=== PATIENT | female | born 1970 | race Two or more races ===

== ENCOUNTER 2024-12-04 07:49 | Outpatient (RCR) | payer MEDICAID, SELFPAY ==
--- NOTE | 2024-11-21 16:29 | CTCFLWUP_ITS ---
Patient: RADHA BRADLEY : 1970 Page 2 of 2 FOLLOW UP NOTE DATE OF SERVICE: 11/21/2024 NAME: RADHA BRADLEY ACCOUNT: [id number] : 1970 AGE: 54 INTERVAL HISTORY: Patient is here to follow-up on her CML. Patient is doing well and have no new complaints. She has rheumatoid issues and have stiffness in her joints but are otherwise doing well she is taking her mar row for that. She is taking her N neb and do not have any problems with it ONCOLOGY HISTORY: DIAGNOSIS: Chronic myeloid leukemia diagnosed in 2011 DATE OF DIAGNOSIS: 2011 STAGE/TNM: Chronic myeloid leukemia TREATMENT HISTORY: Care?Plan Start?Date Cycle Day Intent HISTORY OF PRESENT ILLNESS: Radha Bradley is a 54-year-old ENG speaking Other female referred to [facility] for hi story of CML. 2011: Ms. Bradley states that she has been having leukocytosis initially noted in 2011 2016: She was found to have leukocytosis by the surgeon who was trying to do some kind of surgery on her. Surgery was canceled. Patient was worked up further and found to have CML. She had bone marro w biopsy done. 04/2016?05/23/2016: Ms. Bradley was started on nilotinib 300 mg p.o. twice daily. Unfortunately she de veloped hepatic toxicity. 06/11/2016: Allotment was changed to 400 mg p.o. daily. She was being followed by Dr. Mike Bustamante. 07/09/2022: Dr. Soto's note states that BCR/ABL negative. 01/17/2024: BCR/ABL transcript level negative. 06/14/2024: BCR/ABL transcript level negative (less than 0.0032%). OTHER MEDICAL HISTORY/CONDITIONS: HYPERTENSION LEUKEMIA TUBAL?LIGATION?(1999) FAMILY HISTORY: Father:?FATHER?PROSTATE?CANCER Mother:?DENIES Sibling:?DENIES Children:?DENIES Cancer?History:?LEUKEMIA?DX?IN?2016 SOCIAL HISTORY: Occupational?History:?RETIRED [employer] Education?Level:?Completed High School Marital?Status:? 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 atorvastatin - 10 mg 1 tab Every day before sleep 2. chlorthalidone - 25 mg 1 tab Daily 3. lisinopril - 40 mg 1 tab Daily 4. propranolol - 40 mg 1 tab Twice a Day Medications Last Reconciled by Michell Parr MA on 11/21/2024 ALLERGIES: No Known Allergies REVIEW OF SYSTEMS: A complete 14-point review of systems was performed and is negative except as noted in interval histo ry. PHYSICAL EXAMINATION: VITAL SIGNS: Temperature?98.5, B/P?108/71, Oxygen?Saturation?96% Weight?140?lbs PAIN: 0 - No pain ECOG Performance Status: 0 - Asymptomatic and fully active GENERAL APPEARANCE: Appears well, in no apparent distress, appropriately interactive. HEENT: Normocephalic, no temporal wasting, normal conjunctiva, no scleral icterus, normal hearing, li ps without lesions, neck normal range of motion. CARDIOVASCULAR: Not assessed. PULMONARY: Normal respiratory effort, no respiratory distress or use of accessory muscles, speaking i n full sentences, no tachypnea. EXTREMITIES: No pedal edema or cyanosis. SKIN: Normal skin appearance. NEUROLOGIC: Alert and oriented x4. PSHYCHIATRIC: Appropriate affect, mood normal, behavior normal, intact thought and speech. LABORATORY DATA: I have personally reviewed and interpreted each of the patient?s relevant lab tests, abnormal finding s are below: Date ASSESSMENT/PLAN: Chronic myelogenous leukemia initially diagnosed in 2016. Chronic phase. Ms. Bradley continues to re main asymptomatic. Ms. Bradley is clinically doing well without any complaints. Tolerating nilotinib without any significant side effect BCR/ABL transcript level less than 0.0032% (06/14/2024). I do not have any recent BCR-ABL level as labs are still pending Currently Ms. Bradley is on nilotinib 400 mg p.o. daily. Return with a telephone appointment in 2 weeks to check BCR-ABL continue lenvatinib chronic right ank le pain. Hypertension Continue nilotinib 400 mg p.o. daily. I will see her in 2 weeks as telephone appointment and then I will see her back in clinic in 4 months with labs drawn prior to the visit. CBC CMP BCR-ABL to be done in 4 months RETURN TO CLINIC: 2 weeks telephone appointment BILLING AND COMPLIANCE: I reviewed external records from providers outside my specialty as summarized above. I spent a total of 50 minutes on this patient?s care on the day of their visit excluding time spent related to any bi lled procedures. This time includes time spent with the patient as well as time spent documenting in the medical record, reviewing patients records and tests, obtaining history, placing orders, communi cating with other healthcare professionals, counseling the patient, family or caregiver, and/or care coordination for the diagnoses above. Electronically Signed by: Markell Roche MD T: 4:27 PM CC: PCP: Markell Roche Referring: Markell Roche This document was completed utilizing speech recognition software. Grammatical errors, random word in sertions, pronoun errors, and incomplete sentences are an occasional consequence of this system due t o software limitations, ambient noise, and hardware issues. Any formal questions or concerns about th e content, text or information contained within the body of this dictation should be directly address ed to the provider for clarification.
--- NOTE | 2024-12-04 16:42 | CTCFLWUP_ITS ---
Patient: RADHA RBADLEY : 1970 Page 4 of 4 FOLLOW UP NOTE telephone appointment DATE OF SERVICE: 12/04/2024 NAME: RADHA BRADLEY ACCOUNT: [id number] : 1970 AGE: 54 INTERVAL HISTORY: I initiated phone call at the appointment time. Patient's identity confirmed by date of and fu ll name. Patient agreed to follow-up with a telephone appointment patient is here to discuss her BCR -ABL results. patient is doing well and have no new complaints. She has rheumatoid issues and have stiffness in her joints but are otherwise doing well she is taking her marrow for that. She is takin g her N neb and do not have any problems with it ONCOLOGY HISTORY: DIAGNOSIS: Chronic myeloid leukemia diagnosed in 2011 DATE OF DIAGNOSIS: 2011 STAGE/TNM: Chronic myeloid leukemia TREATMENT HISTORY: Care?Plan Start?Date Cycle Day Intent HISTORY OF PRESENT ILLNESS: Radha Bradley is a 54-year-old ENG speaking Other female referred to [facility] for hi story of CML. 2011: Ms. Bradley states that she has been having leukocytosis initially noted in 2011 2016: She was found to have leukocytosis by the surgeon who was trying to do some kind of surgery on her. Surgery was canceled. Patient was worked up further and found to have CML. She had bone marro w biopsy done. 04/2016?05/23/2016: Ms. Bradley was started on nilotinib 300 mg p.o. twice daily. Unfortunately she de veloped hepatic toxicity. 06/11/2016: Allotment was changed to 400 mg p.o. daily. She was being followed by Dr. Mike Bustamante. 07/09/2022: Dr. Soto's note states that BCR/ABL negative. 01/17/2024: BCR/ABL transcript level negative. 06/14/2024: BCR/ABL transcript level negative (less than 0.0032%). OTHER MEDICAL HISTORY/CONDITIONS: HYPERTENSION LEUKEMIA TUBAL?LIGATION?(1999) FAMILY HISTORY: Father:?FATHER?PROSTATE?CANCER Mother:?DENIES Sibling:?DENIES Children:?DENIES Cancer?History:?LEUKEMIA?DX?IN?2016 SOCIAL HISTORY: Occupational?History:?RETIRED [employer] Education?Level:?Completed High School Marital?Status:? 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 atorvastatin - 10 mg 1 tab Every day before sleep 2. chlorthalidone - 25 mg 1 tab Daily 3. lisinopril - 40 mg 1 tab Daily 4. propranolol - 40 mg 1 tab Twice a Day 5. Tasigna - 200 mg 2 Capsule Daily Medications Last Reconciled by Michell Parr MA on 11/21/2024 (Reconcile on Approval: ?) ALLERGIES: No Known Allergies LABORATORY DATA: I have personally reviewed and interpreted each of the patient?s relevant lab tests, abnormal finding s are below: I reviewed Ms. Bradley's BCR-ABL results from [facility] BCR-ABL less than 0.0032 Date ASSESSMENT/PLAN: Chronic myelogenous leukemia initially diagnosed in 2015. Chronic phase. Ms. Bradley continues to re main asymptomatic. Ms. Bradley is clinically doing well without any complaints. Tolerating nilotinib without any significant side effect BCR/ABL transcript level less than 0.0032% (since January 2024 till current Patient very happy with the results and appreciated call currently Ms. Bradley is on nilotinib 400 mg p.o. daily. Continue nilotinib 400 mg p.o. daily. CBC CMP BCR-ABL to be done in 4 months ORDERS: CBC CMP BCR-ABL RETURN TO CLINIC: 4 months BILLING AND COMPLIANCE: I reviewed external records from providers outside my specialty as summarized above. I spent a total of 50 minutes on this patient?s care on the day of their visit excluding time spent related to any bi lled procedures. This time includes time spent with the patient as well as time spent documenting in the medical record, reviewing patients records and tests, obtaining history, placing orders, communi cating with other healthcare professionals, counseling the patient, family or caregiver, and/or care coordination for the diagnoses above. Electronically Signed by: {Object.Sanct_ID*PnP.NameFL@M}, {Object.Sanct_ID*PnP.Suffix@U} D: {Object.Sanct_Date} T: {Object.Sanct_Time} CC: PCP: Markell Roche Referring: Markell Roche This document was completed utilizing speech recognition software. Grammatical errors, random word in sertions, pronoun errors, and incomplete sentences are an occasional consequence of this system due t o software limitations, ambient noise, and hardware issues. Any formal questions or concerns about th e content, text or information contained within the body of this dictation should be directly address ed to the provider for clarification.
== END 2024-12-08 23:59 | disposition home or self-care (01) ==
LOC: SCTC 07:49
PROVIDERS: PCP Physician Assistant; Referring Provider Internal Medicine Hematology & Oncology; Visit Provider Internal Medicine Hematology & Oncology
DX: C92.10 Chronic myeloid leukemia, BCR/ABL-positive, not having achieved remission (principal); I10 Essential (primary) hypertension
CPT/HCPCS: 99212; G0463

== ENCOUNTER 2025-04-18 15:23 | Outpatient (RCR) | payer MEDICAID, SELFPAY ==
--- NOTE | 2025-04-24 01:17 | CTCFLWUP_ITS ---
Patient: RADHA BRADLEY : 1970 Page 4 of 5 FOLLOW UP NOTE DATE OF SERVICE: 04/18/2025 NAME: RADHA BRADLEY ACCOUNT: [id number] : 1970 AGE: 54 INTERVAL HISTORY: History of Present Illness 54-year-old woman with chronic myeloid leukemia (CML) presenting for follow-up. The patient has been on Tasigna 400 mg and is currently in complete remission. The patient reports feeling generally well, with no new symptoms or concerns mentioned. She had previously complained of some unspecified issues, which prompted extensive testing for various conditions including scleroderma, systemic lupus erythematosus (SLE), hepatitis, valley fever, parvovirus, and t uberculosis. All these tests came back negative. The patient's urine was noted to be a little high at that time, which was attributed to possible dehydration. The patient mentions being a little sick recently, with some residual coughing, but states she is now feeling fine. This recent illness affected her ability to bring someone (possibly a family member) to their own medical appointment. Adherence to current treatment regimens appears to be good, as evidenced by the patient's remission status and the clinician's comment about the effectiveness of her medications. Medications and Supplements - Tasigna 400 mg - Patient in complete remission - Lapatinib - Humira - Working well, suppressing inflammation Review of Systems Respiratory: Positive for cough. DIAGNOSIS: Chronic myeloid leukemia diagnosed in 2011 DATE OF DIAGNOSIS: 2011 STAGE/TNM: Chronic myeloid leukemia TREATMENT HISTORY: Care?Plan Start?Date Cycle Day Intent HISTORY OF PRESENT ILLNESS: Radha Bradley is a 54-year-old ENG speaking Other female referred to [facility] for history of CML. 2011: Ms. Bradley states that she has been having leukocytosis initially noted in 2011 2016: She was found to have leukocytosis by the surgeon who was trying to do some kind of surgery on her. Surgery was canceled. Patient was worked up further and found to have CML. She had bone marrow biopsy done. 04/2016?05/23/2016: Ms. Bradley was started on nilotinib 300 mg p.o. twice daily. Unfortunately she developed hepatic toxicity. 06/11/2016: Allotment was changed to 400 mg p.o. daily. She was being followed by Dr. Mike Cat of [facility]. 07/09/2022: Dr. Soto's note states that BCR/ABL negative. 01/17/2024: BCR/ABL transcript level negative. 06/14/2024: BCR/ABL transcript level negative (less than 0.0032%). OTHER MEDICAL HISTORY/CONDITIONS: HYPERTENSION LEUKEMIA TUBAL?LIGATION?(1999) FAMILY HISTORY: Father:?FATHER?PROSTATE?CANCER Mother:?DENIES Sibling:?DENIES Children:?DENIES Cancer?History:?LEUKEMIA?DX?IN?2016 SOCIAL HISTORY: Occupational?History:?RETIRED [employer] Education?Level:?Completed High School Marital?Status:? 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 atorvastatin - 10 mg 1 tab Every day before sleep 2. chlorthalidone - 25 mg 1 tab Daily 3. lisinopril - 40 mg 1 tab Daily 4. potassium chloride - 10 mEq 1 tab Daily 5. propranolol - 40 mg 1 tab Twice a Day 6. Tasigna - 200 mg 2 Capsule Daily Medications Last Reconciled by Tessa Faith MA on 04/18/2025 ALLERGIES: No Known Allergies REVIEW OF SYSTEMS: A complete 14-point review of systems was performed and is negative except as noted in interval history. PHYSICAL EXAMINATION: VITAL SIGNS: Temperature?65, B/P?107/69, Oxygen?Saturation?97% Weight?136?lbs PAIN: 0 - No pain ECOG Performance Status: None GENERAL APPEARANCE: Appears well, in no apparent distress, appropriately interactive. HEENT: Normocephalic, no temporal wasting, normal conjunctiva, no scleral icterus, normal hearing, lips without lesions, neck normal range of motion. CARDIOVASCULAR: Not assessed. PULMONARY: Normal respiratory effort, no respiratory distress or use of accessory muscles, speaking in full sentences, no tachypnea. EXTREMITIES: No pedal edema or cyanosis. SKIN: Normal skin appearance. NEUROLOGIC: Alert and oriented x4. PSHYCHIATRIC: Appropriate affect, mood normal, behavior normal, intact thought and speech. LABORATORY DATA: I have personally reviewed and interpreted each of the patient?s relevant lab tests, abnormal findings are below: Laboratory, Imaging, and Diagnostic Test Results - CT scan (January 2024): Small cyst noted on the liver. No pathological findings. - Ultrasound: Small cystic lesion in the liver, approximately 1.6 cm. - Colonoscopy (February 2025): Negative. - BCR label: In remission. - Scleroderma test: Negative. - SLE test: Negative. - Urine test: Slightly elevated (specific values not provided). - Coxie test: Negative. - Hepatitis test: Negative. - Valley fever test: Negative. - Parvovirus test: Negative. - TB test: Negative. - Kidney function tests: Normal (specific values not provided). Date ASSESSMENT/PLAN: 54-year-old woman with chronic myeloid leukemia (CML) on Tasigna, in complete remission, presenting for follow-up. Chronic Myeloid Leukemia (CML) Assessment: Patient has been on Tasigna 400 mg and is currently in complete remission. Last BCR-ABL test was reviewed with the patient, confirming remission status. The patient's treatment with lapatinib and Tasigna appears to be effective in managing the CML. Plan: - Continue current CML treatment regimen (lapatinib and Tasigna 400 mg) - Monitor BCR-ABL levels periodically to assess remission status Liver Cyst Assessment: CT scan performed in January 2024 revealed a small cyst on the liver. Ultrasound confirmed a small cystic lesion in the liver measuring approximately 1.6 cm. No pathological findings were noted, suggesting the cyst is likely benign. Plan: - Continue monitoring liver cyst with periodic imaging studies Colonoscopy Screening Assessment: Patient underwent a colonoscopy in February 2025, which was negative for any significant findings. Plan: - Schedule next colonoscopy in 10 years (2034) Autoimmune Workup Assessment: Extensive testing was performed to rule out various autoimmune conditions, including scleroderma and systemic lupus erythematosus (SLE). All tests came back negative. Urine studies showed slightly elevated values, possibly due to inadequate hydration. Plan: - Encourage increased water intake - Monitor for any new symptoms suggestive of autoimmune conditions Infectious Disease Screening Assessment: Patient was screened for various infectious diseases, including hepatitis, coccidioidomycosis (valley fever), parvovirus, and tuberculosis. All test results were negative. Plan: - No further action required at this time - Continue to monitor for any signs or symptoms of infection ORDERS: Order # Description RETURN TO CLINIC: BILLING AND COMPLIANCE: I reviewed external records from providers outside my specialty as summarized above. I spent a total of 50 minutes on this patient?s care on the day of their visit excluding time spent related to any billed procedures. This time includes time spent with the patient as well as time spent documenting in the medical record, reviewing patients records and tests, obtaining history, placing orders, communicating with other healthcare professionals, counseling the patient, family or caregiver, and/or care coordination for the diagnoses above. Electronically Signed by: {Object.Sanct_ID*PnP.NameFL@M}, {Object.Sanct_ID*PnP.Suffix@U} D: {Object.Sanct_Date} T: {Object.Sanct_Time} CC: PCP: Gloria Mcintosh Referring: Gloria Mcintosh This document was completed utilizing speech recognition software. Grammatical errors, random word insertions, pronoun errors, and incomplete sentences are an occasional consequence of this system due to software limitations, ambient noise, and hardware issues. Any formal questions or concerns about the content, text or information contained within the body of this dictation should be directly addressed to the provider for clarification.
== END 2025-05-07 23:59 | disposition home or self-care (01) ==
LOC: SCTC 15:23
PROVIDERS: PCP Physician Assistant; Referring Provider Physician Assistant; Visit Provider Internal Medicine Hematology & Oncology
DX: C92.11 Chronic myeloid leukemia, BCR/ABL-positive, in remission (principal); K76.89 Other specified diseases of liver
CPT/HCPCS: 99212; G0463

== ENCOUNTER → 2025-07-02 | Outpatient (CLI) | payer MEDICAID, SELFPAY ==
--- NOTE | 2025-07-02 08:45 | XR_ITS ---
Examination: Abdomen sonogram, complete Date and time of exam: July 02, 2025, 0856 hours INDICATIONS: Elevated liver function tests on laboratory examination performed 2 weeks ago. Technique: Multiple real-time grayscale transabdominal sonographic images of the abdomen have been obtained. Findings: Normal gallbladder. Normal common bile duct 0.4 cm Pancreatic and 1 9 cm Aorta not enlarged. Liver 12.6 cm 20 mm liver cyst Normal hepatopedal portal venous flow Dictated 9 BC Right kidney 9.4 cm renal cortex 2.0 cm Left kidney 10.1 cm cortex 1.8 cm Minimal left hydronephrosis Suspicious for a 10 mm left renal calculus Spleen 7.5 cm IMPRESSION: Minimal left hydronephrosis Suspicious for 10 mm left renal calculus, consider CT scan abdomen and pelvis without contrast follow-up
== END | disposition home or self-care (01) ==
LOC: CDIM 08:43
PROVIDERS: Referring Provider Physician Assistant; Visit Provider Physician Assistant
DX: N13.30 Unspecified hydronephrosis (principal)
CPT/HCPCS: 76700

== ENCOUNTER → 2025-08-07 | Outpatient (CLI) | payer MEDICAID, SELFPAY ==
--- NOTE | 2025-08-07 12:00 | XR_ITS ---
Examination: CT abdomen and pelvis without contrast. Coronal 3-D reconstructions. Sagittal 2-D reconstructions. Date and time of exam:August 07, 2025, 1401 hours, comparison January 27, 2024 INDICATIONS: Onset left-sided flank pain today CTDI: vol (mGy): 6.92 DLP: (mGycm): 391 Technique: Axial images of the abdomen have been obtained, 3 mm slice thickness Intravenous contrast material has not been administered. Low dose protocols were performed. One or more of the following dose reduction techniques were used; automated exposure control, adjustment of the mA and/or KV according to patient size, use of iterative reconstruction technique. Findings: No focal liver or splenic lesions Liver cysts again noted No gallstones Spleen not enlarged No pancreatic mass 7 mm calcification lateral left kidney Aorta normal size Normal appendix No bladder mass or bladder calculi IMPRESSION: Nonobstructing left renal calculus, no hydronephrosis or ureteral calculi
== END | disposition home or self-care (01) ==
PROVIDERS: PCP Physician Assistant; Referring Provider Physician Assistant; Visit Provider Physician Assistant
DX: N20.0 Calculus of kidney (principal)
CPT/HCPCS: 74176

== ENCOUNTER 2025-08-27 13:57 | Outpatient (RCR) | payer MEDICAID, SELFPAY | END 2025-09-07 23:59 | disposition home or self-care (01) | LOC: SCTC 13:57 | PROVIDERS: PCP Physician Assistant; Referring Provider Physician Assistant; Visit Provider Internal Medicine Hematology & Oncology | DX: C92.11 Chronic myeloid leukemia, BCR/ABL-positive, in remission (principal); K76.89 Other specified diseases of liver | CPT/HCPCS: 99212; G0463 ==